=== PATIENT | male | born 1960 ===

== ENCOUNTER → 2019-06-24 | Outpatient (CLI) | payer OTHER, MEDICAID ==
--- NOTE | 2019-06-24 18:57 | REP ---
REASON: Pain after trauma. PRIORS: None. Degenerative changes are seen throughout the hand. There is no acute fracture. Electronically Signed by Ric Mckeon DO 06/25/2019 09:59 A
--- NOTE | 2019-06-24 18:58 | REP ---
REASON: Pain after trauma. Chronic changes seen involving the wrist. There is a subtle cortical irregularity seen involving the lateral cortex of the distal radius likely chronic in nature. There is no evidence of an acute fracture. Electronically Signed by Ric Mckeon DO 06/25/2019 09:59 A
== END ==
LOC: M LRY 15:04 → EDSEX 15:04
PROVIDERS: ATTEND Nurse Practitioner Family
DX: S69.92XA Unspecified injury of left wrist, hand and finger(s), initial encounter (principal); Y92.89 Other specified places as the place of occurrence of the external cause; Y93.9 Activity, unspecified; Y99.9 Unspecified external cause status